=== PATIENT | male | born 1955 | race Two or more races ===

== ENCOUNTER → 2024-08-31 | Outpatient (CLI) | payer MEDICARE, SELFPAY ==
[2024-08-31 15:35] LABS: Uric Acid 3.6 mg/dL (3.7-9.2)
== END | disposition home or self-care (01) ==
PROVIDERS: PCP Family Medicine; Referring Provider Family Medicine; Visit Provider Family Medicine
DX: E79.0 Hyperuricemia without signs of inflammatory arthritis and tophaceous disease (principal)
CPT/HCPCS: 36415; 84550

== ENCOUNTER → 2024-09-12 | Outpatient (CLI) | payer OTHER, SELFPAY ==
[2024-09-12 17:06] LABS: Uric Acid 3.3 mg/dL (3.7-9.2)
[2024-09-12 17:32] LABS: Sed Rate (ESR) 10 mm/hr (0-20)
== END | disposition home or self-care (01) ==
LOC: COPL 15:56
PROVIDERS: PCP Family Medicine; Referring Provider Family Medicine; Visit Provider Family Medicine
DX: M10.9 Gout, unspecified (principal)
CPT/HCPCS: 36415; 84550; 85652

== ENCOUNTER → 2024-12-12 | Outpatient (CLI) | payer OTHER, SELFPAY ==
[2024-12-12 16:44] LABS: Sed Rate (ESR) 7 mm/hr (0-20)
[2024-12-12 16:51] LABS: Anion Gap 12 (7-16); BUN/Creatinine Ratio 18 Ratio (12-20); Blood Urea Nitrogen 24 mg/dL (9-23); Calcium 8.7 mg/dL (8.3-10.6); Calcium (Corrected) 8.7 mg/dL (8.5-10.1); Carbon Dioxide 23.9 mMol/L (20.0-31.0); Chloride 108 mMol/L (98-107); Creatinine (Component) 1.3 mg/dL (0.6-1.3); Glucose 153 mg/dL (74-106); Osmolality,Calculated 293 (275-295); Potassium 4.2 mMol/L (3.4-5.1); Sodium 144 mMol/L (136-145); Uric Acid 6.5 mg/dL (3.7-9.2); eGFR 59 See Note
== END | disposition home or self-care (01) ==
LOC: COPL 14:23
PROVIDERS: PCP Family Medicine; Referring Provider Family Medicine; Visit Provider Family Medicine
DX: E79.0 Hyperuricemia without signs of inflammatory arthritis and tophaceous disease (principal); R94.4 Abnormal results of kidney function studies
CPT/HCPCS: 36415; 80069; 84550; 85652

== ENCOUNTER → 2025-07-04 | Outpatient (CLI) | payer OTHER, SELFPAY ==
--- NOTE | 2025-07-04 14:30 | XR_ITS ---
Examination: MRI cervical spine without intravenous contrast Date and time of exam: July 04, 2025, 1438 hours, comparison June 13, 2021 INDICATIONS: Neck pain radiating to the shoulder 40 years with numbness in the fingers Technique: Multiple axial and sagittal sections of the cervical spine to been obtained. T2 weighted sagittal sections, TR 3, 270, TE 117 T1-weighted sagittal sections, TR 500, TE 11 T1-weighted axial sections, TR 607, TE 12, axial sections TR 18, TE 27 and T2 weighted transverse sections, TR 3920, TE 122. Findings: Reversal of normal cervical lordosis. No cervical fracture Intact odontoid Diffuse cervical disc desiccation Mild to moderate disc narrowing C6-C7 No localized enlargement of the cervical cord C2-C3 moderate right neural foraminal stenosis C3-C4 advanced bilateral neuroforaminal stenosis C4-C5 advanced bilateral neuroforaminal stenosis C5-C6 moderate left neural foraminal stenosis C6-C7 advanced bilateral neuroforaminal stenosis C7-T1 no disc protrusion IMPRESSION: C2-C3 moderate right neuroforaminal stenosis C3-C4, C4-C5, C6-C7 advanced bilateral neuroforaminal stenosis C5-C6 moderate left neuroforaminal stenosis
== END | disposition home or self-care (01) ==
PROVIDERS: PCP Family Medicine; Referring Provider Physical Medicine & Rehabilitation Pain Medicine; Visit Provider Physical Medicine & Rehabilitation Pain Medicine
DX: M48.02 Spinal stenosis, cervical region (principal)
CPT/HCPCS: 72141